=== PATIENT | female | born 1955 | race Hispanic/Latino ===

== ENCOUNTER 2017-07-29 19:55 | Emergency (ER) | payer MEDICARE ==
[2017-07-29 20:31] LABS: EOSINOPHILS % (AUTO) 0.8 % (0.0-8.0); HEMATOCRIT 35.9 % (36-48); LYMPHOCYTES % (AUTO) 16.2 % (21.0-51.0); MEAN CORPUSCULAR HEMOGLOBIN 28.1 pg (27.0-33.0); MEAN CORPUSCULAR HGB CONC 33.9 g/dL (32.0-36.0); MEAN CORPUSCULAR VOLUME 83.1 fL (79-99); MONOCYTES % (AUTO) 16.1 % (3.0-13.0); NEUTROPHILS % (AUTO) 65.9 % (40.0-77.0); PLATELET COUNT (AUTO) 354 K/uL (130-400); RED BLOOD CELL COUNT(AUTO) 4.32 MIL/uL (4.00-5.50); RED CELL DISTRIBUTION WIDTH 14.1 % (11.0-15.5); WHITE BLOOD COUNT (AUTO) 9.4 K/uL (4.8-10.8)
[2017-07-29] MEDS ORDERED: SODIUM CHLORIDE 0.9% 1000ML 1,000 ML IV ONE (20:38)
[2017-07-29 20:41] LABS: CREATININE 1.2 mg/dL (0.5-1.5); POTASSIUM 3.8 mmol/L (3.5-5.1)
[2017-07-29 20:46] LABS: ALBUMIN 3.5 g/dL (3.5-5.0); BILIRUBIN,TOTAL 0.4 mg/dL (0.2-1.0); TOTAL PROTEIN, SERUM 7.9 g/dL (6.0-8.3)
[2017-07-29] MEDS ORDERED: MORPHINE SULFATE 4 MG/1ML SYG ONE (21:23)
[2017-07-29] MEDS ORDERED: ONDANSETRON HCL 4 MG/2 ML VIAL ONE (21:43)
== END 2017-07-29 21:57 | disposition home or self-care (01) ==
LOC: EDH 19:55
DX: J06.9 Acute upper respiratory infection, unspecified (principal); I10 Essential (primary) hypertension; M32.9 Systemic lupus erythematosus, unspecified; M19.90 Unspecified osteoarthritis, unspecified site; Z79.4 Long term (current) use of insulin; Z90.710 Acquired absence of both cervix and uterus; Z90.81 Acquired absence of spleen
CPT/HCPCS: 36415; 71020; 80053; 85025; 87804 ×2; 96374; 96375; 99285; J2270; J2405; J7030

== ENCOUNTER 2018-08-15 07:18 | Emergency (ER) | payer MEDICARE ==
[2018-08-15] MEDS ORDERED: ONDANSETRON HCL 4 MG/2 ML VIAL ONE (07:47)
[2018-08-15] MEDS ORDERED: MORPHINE SULFATE 4 MG/1ML SYG ONE ×2 (07:48→09:26)
[2018-08-15 08:40] LABS: BASOPHILS % (AUTO) 1.1 % (0.0-5.0); EOSINOPHILS % (AUTO) 1.9 % (0.0-8.0); LYMPHOCYTES % (AUTO) 18.3 % (21.0-51.0); MEAN CORPUSCULAR HEMOGLOBIN 28.3 pg (27.0-33.0); MEAN CORPUSCULAR HGB CONC 32.9 g/dL (32.0-36.0); MEAN CORPUSCULAR VOLUME 86.2 fL (79-99); MONOCYTES % (AUTO) 8.4 % (3.0-13.0); NEUTROPHILS % (AUTO) 70.3 % (40.0-77.0); PLATELET COUNT (AUTO) 435 K/uL (130-400); RED BLOOD CELL COUNT(AUTO) 4.29 MIL/uL (4.00-5.50); RED CELL DISTRIBUTION WIDTH 14.5 % (11.0-15.5); WHITE BLOOD COUNT (AUTO) 11.2 K/uL (4.8-10.8)
[2018-08-15 08:45] LABS: POTASSIUM 3.7 mmol/L (3.5-5.1)
[2018-08-15 08:51] LABS: BILIRUBIN,TOTAL 0.4 mg/dL (0.2-1.0); TOTAL PROTEIN, SERUM 8.3 g/dL (6.0-8.3)
[2018-08-15 08:53] LABS: APPEARANCE,URINE Clear (CLEAR); BILIRUBIN,URINE Negative (NEGATIVE); COLOR,URINE Yellow (YELLOW); GLUCOSE, URINE (UA) Negative (NEGATIVE); KETONES,URINE Negative (NEGATIVE); LEUKOCYTE ESTERASE ,URINE Negative (NEGATIVE); NITRATE,URINE Negative (NEGATIVE); OCCULT BLOOD,URINE Negative (NEGATIVE); PH,URINE 6.5 (5.0-8.0); PROTEIN,URINE POS 2+ (NEGATIVE)
[2018-08-15 09:12] LABS: BACTERIA,URINE Rare /HPF (None Seen); RBC,URINE 0-1 /HPF (0-1); SQUAMOUS EPITHELIAL CELL,UR Rare /HPF (0-2); WBC,URINE 0-1 /HPF (0-1)
[2018-08-15] MEDS ORDERED: PREDNISONE 20 MG TABLET ONE (09:40)
== END 2018-08-15 10:25 | disposition home or self-care (01) ==
LOC: EDH 07:18
DX: M25.552 Pain in left hip (principal); M54.5 Low back pain; I10 Essential (primary) hypertension; E11.9 Type 2 diabetes mellitus without complications; M19.90 Unspecified osteoarthritis, unspecified site; Z90.710 Acquired absence of both cervix and uterus; Z98.890 Other specified postprocedural states; Z79.4 Long term (current) use of insulin
CPT/HCPCS: 36415; 80053; 81001; 85025; 96374; 96375; 96376; 99283; J2270 ×2; J2405

== ENCOUNTER 2019-02-03 22:15 | Emergency (ER) | payer MEDICARE ==
[2019-02-03] MEDS ORDERED: LABETALOL 20 MG/4 ML DISP.SYRIN IV ONE (23:09)
[2019-02-03] MEDS ORDERED: DIAZEPAM 5 MG TABLET ONE (23:10)
[2019-02-03 23:37] LABS: BASOPHILS % (AUTO) 0.8 % (0.0-5.0); HEMATOCRIT 33.7 % (36-48); LYMPHOCYTES % (AUTO) 24.1 % (21.0-51.0); MEAN CORPUSCULAR HEMOGLOBIN 27.9 pg (27.0-33.0); MEAN CORPUSCULAR HGB CONC 32.4 g/dL (32.0-36.0); MEAN CORPUSCULAR VOLUME 86.2 fL (79-99); MONOCYTES % (AUTO) 9.1 % (3.0-13.0); PLATELET COUNT (AUTO) 399 K/uL (130-400); RED BLOOD CELL COUNT(AUTO) 3.91 MIL/uL (4.00-5.50); RED CELL DISTRIBUTION WIDTH 14.1 % (11.0-15.5); WHITE BLOOD COUNT (AUTO) 9.6 K/uL (4.8-10.8)
[2019-02-03 23:57] LABS: BILIRUBIN,TOTAL 0.3 mg/dL (0.2-1.0); CREATININE 1.2 mg/dL (0.5-1.5); POTASSIUM 3.8 mmol/L (3.5-5.1)
[2019-02-03 23:58] LABS: ALBUMIN 3.6 g/dL (3.5-5.0); TOTAL PROTEIN, SERUM 7.3 g/dL (6.0-8.3)
[2019-02-04 00:18] LABS: BILIRUBIN,DIRECT 0.1 mg/dL (0.0-0.3)
== END 2019-02-04 01:12 | disposition home or self-care (01) ==
LOC: EDH 22:15
DX: G89.29 Other chronic pain (principal); M54.6 Pain in thoracic spine; I10 Essential (primary) hypertension; E11.9 Type 2 diabetes mellitus without complications; M19.90 Unspecified osteoarthritis, unspecified site; M32.9 Systemic lupus erythematosus, unspecified; Z90.710 Acquired absence of both cervix and uterus; Z90.49 Acquired absence of other specified parts of digestive tract; Z98.890 Other specified postprocedural states
CPT/HCPCS: 36415; 71045; 80048; 80076; 84484; 85025; 93005; 96374

== ENCOUNTER → 2020-08-02 | Outpatient (CLI) | payer OTHER, MEDICARE ==
[~2020-08-02] MED LIST: AEC81 PO; AMLO-257 PO; ATOR10 PO; BETA15CR5 TP; CLON0.1T PO; CYCL10TA7 PO; DOXY100C2 PO; DULO30CA52 PO; LEFL20TA PO; LINA290C PO; LISI10TA7 PO; LORA-699 PO; METF-444 PO; NATE60TA PO; OMEP40CA13 PO; TRAM50TA4 PO; ZOLP5TAB8 PO
== END ==
LOC: OIH 07:59
PROVIDERS: ATTEND Internal Medicine
DX: M19.071 Primary osteoarthritis, right ankle and foot (principal); M19.072 Primary osteoarthritis, left ankle and foot; M19.042 Primary osteoarthritis, left hand; M19.041 Primary osteoarthritis, right hand
CPT/HCPCS: 73630

== ENCOUNTER 2020-12-31 13:32 | Emergency (ER) | payer OTHER, MEDICARE ==
[~2020-12-31] VITALS: Ht 149.9 cm; Wt 49.4 kg
[~2020-12-31 13:32] MED LIST changes: +LISI10TA24 PO; -LISI10TA7 PO
[2020-12-31 14:24] VITALS: BP 145/61
[2020-12-31] MEDS ORDERED: ONDANSETRON HCL 4 MG/2 ML VIAL IVP ONE (15:00)
[2020-12-31] MEDS ORDERED: MORPHINE 4 MG SYG (4MG/1ML) IVP ONE (15:00)
[2020-12-31] MEDS ORDERED: ASPIRIN 325 MG TABLET PO ONE (15:00)
[2020-12-31] MEDS ORDERED: LACTATED RINGERS 1000ML 1,000 ML IV ONE (15:45)
[2020-12-31 15:48] LABS: BASOPHILS % (AUTO) 1.1 % (0.0-5.0); EOSINOPHILS % (AUTO) 1.4 % (0.0-8.0); HEMATOCRIT 32.9 % (36-48); LYMPHOCYTES % (AUTO) 11.5 % (21.0-51.0); MEAN CORPUSCULAR HEMOGLOBIN 28.5 pg (27.0-33.0); MEAN CORPUSCULAR HGB CONC 31.3 g/dL (32.0-36.0); MEAN CORPUSCULAR VOLUME 90.9 fL (79-99); MONOCYTES % (AUTO) 8.1 % (3.0-13.0); NEUTROPHILS % (AUTO) 76.2 % (40.0-77.0); RED BLOOD CELL COUNT(AUTO) 3.62 MIL/uL (4.00-5.50); WHITE BLOOD COUNT (AUTO) 14.7 K/uL (4.8-10.8)
[2020-12-31 16:10] LABS: AMPHET/METH SCREEN,URINE NEGATIVE (NEGATIVE); BARBITURATE SCREEN, URINE NEGATIVE (NEGATIVE); BENZODIAZEPINES SCREEN,URINE NEGATIVE (NEGATIVE); CANNABINOID SCREEN,URINE NEGATIVE (NEGATIVE); COCAINE SCREEN,URINE NEGATIVE (NEGATIVE); OPIATE SCREEN,URINE NEGATIVE (NEGATIVE); PHENCYCLIDINE SCREEN,URINE NEGATIVE (NEGATIVE)
[2020-12-31 16:14] VITALS: BP 152/63
[2020-12-31 16:20] LABS: B-TYPE NATRIURETIC PEPTIDE 24 pg/mL (0-100)
[2020-12-31 16:21] LABS: PLATELET COUNT (AUTO) 743 K/uL (130-400)
[2020-12-31 16:40] LABS: BILIRUBIN,TOTAL 0.3 mg/dL (0.2-1.0); CREATININE 1.2 mg/dL (0.5-1.5); MAGNESIUM 1.6 mg/dL (1.80-2.40); POTASSIUM 5.8 mmol/L (3.5-5.1)
[2020-12-31 16:41] LABS: TOTAL PROTEIN, SERUM 7.8 g/dL (6.0-8.3)
[2020-12-31 17:59] VITALS: BP 135/78
== END 2020-12-31 18:07 | disposition home or self-care (01) ==
LOC: EDH 13:32
DX: M54.6 Pain in thoracic spine (principal); M25.511 Pain in right shoulder; R11.0 Nausea; I10 Essential (primary) hypertension; E11.9 Type 2 diabetes mellitus without complications; E78.5 Hyperlipidemia, unspecified; K21.9 Gastro-esophageal reflux disease without esophagitis; Z90.710 Acquired absence of both cervix and uterus; Z98.890 Other specified postprocedural states; Z79.82 Long term (current) use of aspirin; Z79.899 Other long term (current) drug therapy
CPT/HCPCS: 36415; 71045; 80053; 80305; 82550; 83690; 83735; 83874; 83880; 84484; 85025; 85378; 93005; 96374; 96375; 99285; J2270; J2405; J7120

== ENCOUNTER → 2021-01-19 | Outpatient (CLI) | payer OTHER, MEDICARE ==
[~2021-01-19] MED LIST changes: -OMEP40CA13 PO; +OMEP40CA21 PO
== END | disposition home or self-care (01) ==
LOC: OIH 13:06
PROVIDERS: ATTEND Internal Medicine
DX: M47.816 Spondylosis without myelopathy or radiculopathy, lumbar region (principal); M25.78 Osteophyte, vertebrae; M46.1 Sacroiliitis, not elsewhere classified
CPT/HCPCS: 72100; 72202

== ENCOUNTER 2024-07-05 07:27 | Emergency (ER) | payer OTHER, MEDICARE ==
[~2024-07-05] VITALS: Ht 149.9 cm; Wt 54.4 kg
[~2024-07-05 07:27] MED LIST changes: +BETA15CR12 TP; -BETA15CR5 TP; +CYCL-309 PO; -CYCL10TA7 PO; -DOXY100C2 PO; +DOXY100C5 PO
--- NOTE | 2024-07-05 07:56 | ERN ---
ED Note History of Present Illness Stated Complaint: LEFT HIP PAIN Chief Complaint: Hip Pain/Injury Time Seen by MD: 07:29 Dictation: This 69-year-old female with a history of significant arthritis and lupus who has frequent joint pains presents in the emergency department complaining of atraumatic left buttock and hip area pain that was present when she got up yesterday. She took a half a hydrocodone with relief but is here because she finds that cyclobenzaprine is often helpful when this happens. The patient reports some nausea and has had low-grade fever which is intermittent but denies chills, poor appetite, rash, focal weakness, numbness, or tingling, new urinary symptoms or GI complaints. She states she is eating drinking and drinking well. She has some chronic urinary incontinence which is unchanged. She has known renal insufficiency and is followed by Dr. Lewis for regular care and Dr. Marsha Fitzgerald for her kidneys. She is experiencing any other acute joint pains right now. The patient has a history of hyperlipidemia, hypertension, anemia, diabetes and hysterectomy in the past. She is here with her spouse Allergies: Coded Allergies: No Known Drug Allergies (Verified Allergy, Unknown, 08/08/19) Home Meds Active Scripts Doxycycline Hyclate (Doxycycline Hyclate) 100 Mg Capsule, 100 MG PO BID for 4 Days, #8 CAP 0 Refills Prov:OREN CASTANEDA MD 08/12/19 Reported Medications Betamethasone/Propylene Glyc (Betamethasone Dp Aug 0.05% Crm) 15 Gm Cream..g., 15 GM TP AD 08/10/19 Metformin HCl (Metformin HCl) 500 Mg Tablet, 500 MG PO AD, TAB 08/10/19 Aspirin (ASPIRIN 81 MG ECTAB) 81 Mg Ectab, 81 MG PO DAILY, TAB.EC 08/10/19 Duloxetine HCl (Duloxetine HCl) 30 Mg Capsule.dr, 30 MG PO AD, CAP 08/10/19 Clonidine HCl (Clonidine HCl) 0.1 Mg Tablet, 0.1 MG PO AD, TAB 08/10/19 Cyclobenzaprine HCl (Cyclobenzaprine HCl) 10 Mg Tablet, 10 MG PO AD, TAB 08/10/19 Loratadine (Loratadine) 10 Mg Tab.rapdis, 10 MG PO AD, TAB 08/10/19 Tramadol Hcl (Tramadol HCl) 50 Mg Tablet, 50 MG PO AD, TAB 08/10/19 Zolpidem Tartrate (Zolpidem Tartrate) 5 Mg Tablet, 5 MG PO HS, TAB 08/10/19 Nateglinide (Starlix) 60 Mg Tablet, 60 MG PO TID, TAB 08/10/19 Leflunomide (Arava) 20 Mg Tablet, 20 MG PO DAILY, TAB 08/10/19 Linaclotide (Linzess) 290 Mcg Capsule, 290 MCG PO DAILY, CAP 08/10/19 Amlodipine Besylate (Amlodipine Besylate) 5 Mg Tablet, 5 MG PO BID, TAB 08/10/19 Omeprazole (Omeprazole) 40 Mg Capsule.dr, 40 MG PO DAILY, CAP 08/10/19 Atorvastatin Calcium (LIPITOR) 10 Mg Tab, 10 MG PO HS, TAB 08/10/19 Lisinopril (Lisinopril) 10 Mg Tablet, 10 MG PO DAILY, TAB 08/10/19 Past Medical History Past Medical History: Anemia, Diabetes-Type II, High Cholesterol, Hypertension Additional Past Medical Hx: ARTHRITIS ,LUPUS Surgical History: Hysterectomy Family History: Negative Social History: Negative, Lives with family RN Note Reviewed/Agreed w/PFSH: Yes Review of System Dictation All pertinent systems reviewed, negative except as documented in the HPI The ROS is obtained from patient GENERAL/CONSTITUTIONAL: Negative except as documented in HPI. ENT: Negative except as documented in HPI. CARDIOVASCULAR: Negative except as documented in HPI. RESPIRATORY: Negative except as documented in HPI. GASTROINTESTINAL: Negative except as documented in HPI. GENITOURINARY: Negative except as documented in HPI. MUSCULOSKELETAL: Negative except as documented in HPI. SKIN: Negative except as documented in HPI. NEUROLOGIC: Negative except as documented in HPI. Initial Vital Sign VS Vital Signs Date Time Temp Pulse Resp B/P (MAP) Pulse Ox O2 Delivery O2 Flow Rate FiO2 07/05/24 07:29 98.8 68 18 203/71 98 Room Air 0 07/05/24 10:13 21 Physical Exam Dictation VITAL SIGNS: note is made of triage vital signs CONSTITUTIONAL: This is a comfortable nontoxic but chronically ill-appearing patient who is awake, alert, and appropriately interactive. HEAD: Normocephalic, Atraumatic. EYES: Pupils are equal. There was mild periorbital edema ENT: No nasal discharge noted. Posterior pharynx is without exudate, redness, swelling, masses, or evidence of obstruction. Uvula midline. Mucous membranes moist. NECK: Trachea midline, no masses palpated, and no cervical lymphadenopathy. No swelling. Supple, full range of motion without nuchal rigidity. No vertebral point tenderness. No meningismus. CHEST/AXILLA: Normal chest wall appearance and motion. No tenderness. No crepitus. CV: Normal rate, regular rhythm. No murmur. No edema. RESPIRATORY:Respiratory rate is normal. Bilateral equal breath sounds with good airflow. Normal breath sounds are noted. No rales, rhonchi or wheezes noted. No increased work of breathing, no retractions. ABDOMEN: Inspection normal. No distention is appreciated. Bowel sounds are normal. No mass or organomegaly is appreciated. There is no tenderness. No rebound. No rigidity. No voluntary or involuntary guarding. BACK: Inspection is normal. No midline tenderness is appreciated. The patient appears comfortable when moving. There was no rash associated with the area of pain in the buttock and the midline is nontender : No CVA tenderness or bladder tenderness. SKIN: Warm, dry, with normal turgor. Capillary refill less than 3 seconds. Normal color.No rash. No cellulitis or abscess. No evidence of acute injury. MS/Extremity: There is no calf tenderness. Baseline range of motion is noted in all 4 extremities. There are no deformities. NEURO: Awake and alert, lucid. Facies symmetric and speech is clear. Motor strength 5/5 in all extremities. Sensory grossly intact. PSYCH: Patient is appropriately attentive and cooperative without evidence of hallucination. Results (Laboratory/Radiology) Laboratory/Radiology Laboratory Tests Test 07/05/24 08:50 07/05/24 09:43 Urine Color LIGHT-YELLOW (YELLOW) Urine Appearance CLEAR (CLEAR) Urine pH 6.0 (5.0-8.0) Urine Specific [place] 1.013 (1.001-1.031) Urine Protein 30 mg/dL (NEGATIVE) H Urine Glucose (UA) >=1000 mg/dL (NEGATIVE) H Urine Ketones NEGATIVE mg/dL (NEGATIVE) Urine Occult Blood +- (TRACE) (NEGATIVE) H Urine Nitrate NEGATIVE (NEGATIVE) Urine Bilirubin NEGATIVE mg/dL (NEGATIVE) Urine Urobilinogen 0.2 mg/dL (0.2-1.0) Urine Leukocyte Esterase NEGATIVE Liliana/uL Urine RBC 0-1 /HPF (0-1) Urine WBC 0-1 /HPF (0-1) Urine Squamous Epithelial Cells RARE /HPF (0-2) Urine Bacteria None /HPF (None Seen) White Blood Count 8.7 K/uL (4.8-10.8) Red Blood Count 3.98 MIL/uL (4.00-5.50) L Hemoglobin 11.1 g/dL (12.0-16.0) L Hematocrit 34.4 % (36-48) L Mean Corpuscular Volume 86.4 fL (79-99) Mean Corpuscular Hemoglobin 27.9 pg (27.0-33.0) Mean Corpuscular Hemoglobin Concent 32.3 g/dL (32.0-36.0) Red Cell Distribution Width 14.8 % (11.0-15.5) Platelet Count 481 K/uL (130-400) H Mean Platelet Volume 9.9 fL (7.5-10.5) Immature Granulocyte % (Auto) 0.6 % (0-1) Neutrophils (%) (Auto) 79.8 % (40.0-77.0) H Lymphocytes (%) (Auto) 11.3 % (21.0-51.0) L Monocytes (%) (Auto) 6.1 % (3.0-13.0) Eosinophils (%) (Auto) 1.6 % (0.0-8.0) Basophils (%) (Auto) 0.6 % (0.0-5.0) Neutrophils # (Auto) 7.0 K/uL (1.8-7.7) Lymphocytes # (Auto) 1.0 K/uL (1.0-4.8) Monocytes # (Auto) 0.5 K/uL (0.1-1.0) Eosinophils # (Auto) 0.14 K/uL (0.00-0.70) Basophils # (Auto) 0.05 K/uL (0.00-0.20) Absolute Immature Granulocyte (auto 0.05 K/uL (0-1) Nucleated Red Blood Cells 0.0 % (0.0-0.19) Sodium Level 139 mmol/L (136-145) Potassium Level 5.1 mmol/L (3.5-5.1) Chloride Level 103 mmol/L (101-111) Carbon Dioxide Level 29 mmol/L (21-32) Blood Urea Nitrogen 34 mg/dL (7-18) H Creatinine 1.9 mg/dL (0.5-1.0) H Glomerular Filtration Rate Calc 28 mL/min (>90) Random Glucose 127 mg/dL (70-105) H Total Calcium 9.4 mg/dL (8.5-10.1) C-Reactive Protein, Quantitative 2.20 mg/L (0.5-3.0) Labs Reviewed?: Yes X-RAY Comment: The hip and spine films showed degenerative changes but no evidence of acute abnormalities on my interpretation. Radiology reading is pending at the time of disposition ED Course ED Course Orders Procedure Category Date Status Time Cbc With Differential LAB 07/05/24 Complete 07:54 Basic Metabolic Panel LAB 07/05/24 Complete 07:54 Hip Unilat 2-3vw Left RAD 07/05/24 Taken 07:54 Lumbar Spine 2-3vws RAD 07/05/24 Taken 08:14 Urinalysis Profile LAB 07/05/24 Complete 08:57 Morphine 4mg Syg PHA 07/05/24 Complete (Morphine 4mg Syg) 10:00 Ondansetron 4mg Inj PHA 07/05/24 Complete (Zofran 4mg Inj) 10:00 Ondansetron 4mg Inj PHA 07/05/24 Complete (Zofran 4mg Inj) 09:47 Morphine 4mg Syg PHA 07/05/24 Complete (Morphine 4mg Syg) 09:47 Crp Quantitative LAB 07/05/24 Complete 09:43 Methylprednisolone PHA 07/05/24 In Process Succ 125mg (Solu-Medr 11:00 Current Medications Medications (Trade) Dose Ordered Sig/Ronen Route PRN Reason Start Time Stop Time Status Last Admin Dose Admin Methylprednisolone Sodium Succinate (Solu-medROL 125MG) 80 mg ONCE ONCE IVP 07/05/24 11:00 07/05/24 11:01 07/05/24 10:34 Morphine Sulfate (morPHINE 4MG SYG) 4 mg ONCE ONCE IVP 07/05/24 10:00 07/05/24 10:01 DC 07/05/24 09:48 Morphine Sulfate (morPHINE 4MG SYG) 4 mg STK-MED ONCE .ROUTE 07/05/24 09:47 07/05/24 09:48 DC Ondansetron HCl (zoFRAN 4MG INJ) 4 mg ONCE ONCE IVP 07/05/24 10:00 07/05/24 10:01 DC 07/05/24 10:01 Ondansetron HCl (zoFRAN 4MG INJ) 4 mg STK-MED ONCE .ROUTE 07/05/24 09:47 07/05/24 09:47 DC Vital Signs Date Time Temp Pulse Resp B/P (MAP) Pulse Ox O2 Delivery O2 Flow Rate FiO2 07/05/24 10:13 76 16 160/58 96 Room Air* 0 21 07/05/24 07:29 98.8 68 18 203/71 98 Room Air 0 Medical Decision Making MDM INITIAL IMPRESSION Initial history and physical concerning for acute exacerbation of chronic joint pain Contributing medical problems: Lupus, hypertension hyperlipidemia and diabetes, chronic renal insufficiency I have reviewed the triage nursing notes and vital signs. The patient is afebrile with acceptable oxygen saturation, heart rate and blood pressure. Initial plan: Laboratory screening, symptomatic medication DATA REVIEW I have reviewed additional NN, repeat VS, and monitoring where indicated. Blood pressure came down to 160/80. Patient remains afebrile. [facility] diagnostic results: White count is not elevated, there was mild neutrophil predominance and mild anemia. BUN is 34 and creatinine are 1.9. The glucose is 127. C-reactive protein is unremarkable. There was no UTI Other independent historian: none Review of external data: Previous kidney function dates 09/18/2020 with a creatinine of 1.2 however the patient has seen Dr. Marsha Fitzgerald recently and reports that her kidney numbers have been gradually worsening ED COURSE Interventions: The patient received some morphine and steroids. Reassessment: She reports improvement and would like to go home DISPOSITION Final diagnostic impression: Acute exacerbation of chronic joint pain No evidence of a contributing infection, shingles or occult trauma. I discussed my findings, clinical impression and treatment recommendations with the patient. I have reviewed the social factors contributing to the patient's presentation and disposition planning. My final plan for disposition was made based upon clinical findings, response to treatment and discussion with the patient regarding management options. I did tell the patient that I would review the final reading of the x-ray later today and get back with her if there is something unexpected. Hospitalization is not indicated due to low risk of short term progression, complication, morbidity or mortality related to the current diagnosis At the time of discharge, the vital signs are within acceptable limits. The discharge treatment plan includes low-dose cyclobenzaprine. I do not plan to discharge her with a steroid course. She can see her PCP if she has persistent pain this coming week I did discuss the warnings related to the beers list classification for cyclobenzaprine inpatient in her age group. Incidental findings discussed: We did discuss kidney function Questions were invited and answered in layman's terms. I have emphasized my follow-up recommendations and reviewed ED return precautions. I have answered any questions in layman's terms. The patient understands that they will have to arrange for out-patient follow-up for recheck of today's condition. The patient is stable and appropriate for discharge from the ED. This dictation was prepared using [employer] voice recognition software. Occasional voice recognition errors may occur. When identified, these errors have been corrected. While every attempt is made to correct errors during dictation, errors may still exist. DX & DISP Disposition: Discharge Decision to Admit Date: Jul 05, 2024 Decision to Admit Time: 11:00 Departure Impression: Primary Impression: Left back and hip pain Additional Impressions: Chronic renal insufficiency, Systemic lupus erythematosus, Chronic urinary incontinence Condition: Stable Scripts Cyclobenzaprine HCl (Cyclobenzaprine HCl) 10 Mg Tablet 0.5 TAB PO BID PRN for PAIN for 10 Days, #10 TAB 0 Refills Prov: DEBBY REDDY MD 07/05/24 Additional Instructions: Local heat or cream such as icy hot or [place] may be helpful over the affected area. Use Tylenol for baseline pain control and add in the hydrocodone or cyclobenzaprine if needed for significant pain. Both of those medications have the effect of increased sedation, constipation, dry mouth, dizziness and falls. If you are not feeling a lot better follow up with Dr. Lewis later this week. Continue all your usual home medications. I will call you if the x-ray readings come back with any unexpected findings later today Referrals: NONE (PCP) Time of Disposition: 11:03 DEBBY REDDY MD Jul 05, 2024 07:56
[2024-07-05 09:25] LABS: APPEARANCE,URINE CLEAR (CLEAR); BILIRUBIN,URINE NEGATIVE (NEGATIVE); GLUCOSE, URINE (UA) >=1000 mg/dL (NEGATIVE); KETONES,URINE NEGATIVE (NEGATIVE); LEUKOCYTE ESTERASE ,URINE NEGATIVE Leu/uL (NEGATIVE); NITRATE,URINE NEGATIVE (NEGATIVE); UROBILINOGEN,URINE 0.2 mg/dL (0.2-1.0)
[2024-07-05 09:26] LABS: ADD UA MICROSCOPIC YES; PROTEIN,URINE 30 mg/dL (NEGATIVE)
[2024-07-05 09:27] LABS: COLOR,URINE LIGHT-YELLOW (YELLOW)
[2024-07-05 09:28] LABS: RBC,URINE 0-1 /HPF (0-1); SQUAMOUS EPITHELIAL CELL,UR RARE /HPF (0-2); WBC,URINE 0-1 /HPF (0-1)
[2024-07-05] MEDS: morPHINE 4 MG SYG IVP ONE (09:48)
[2024-07-05 09:49] LABS: BASOPHILS # (AUTO) 0.05 K/uL (0.00-0.20); BASOPHILS % (AUTO) 0.6 % (0.0-5.0); EOSINOPHILS # (AUTO) 0.14 K/uL (0.00-0.70); EOSINOPHILS % (AUTO) 1.6 % (0.0-8.0); HEMATOCRIT 34.4 % (36-48); IMMATURE GRANULOCYTE ABSOLUTE 0.05 K/uL (0-1); LYMPHOCYTES % (AUTO) 11.3 % (21.0-51.0); MEAN CORPUSCULAR HEMOGLOBIN 27.9 pg (27.0-33.0); MEAN CORPUSCULAR HGB CONC 32.3 g/dL (32.0-36.0); MEAN CORPUSCULAR VOLUME 86.4 fL (79-99); MONOCYTES # (AUTO) 0.5 K/uL (0.1-1.0); MONOCYTES % (AUTO) 6.1 % (3.0-13.0); NEUTROPHILS % (AUTO) 79.8 % (40.0-77.0); PLATELET COUNT (AUTO) 481 K/uL (130-400); RED BLOOD CELL COUNT(AUTO) 3.98 MIL/uL (4.00-5.50); RED CELL DISTRIBUTION WIDTH 14.8 % (11.0-15.5); WHITE BLOOD COUNT (AUTO) 8.7 K/uL (4.8-10.8)
[2024-07-05] MEDS: morPHINE 4 MG SYG ONE (10:00)
[2024-07-05] MEDS: ondanSETRON 4MG INJ ONE (10:00)
[2024-07-05] MEDS: ondanSETRON 4MG INJ IVP ONE (10:01)
[2024-07-05 10:06] LABS: CREATININE 1.9 mg/dL (0.5-1.0); POTASSIUM 5.1 mmol/L (3.5-5.1)
[2024-07-05] MEDS: Solu-medROL 125MG VIAL IVP ONE (10:34)
[2024-07-05] MEDS ORDERED: CYCL-309 PO (11:02)
[2024-07-05 11:23] VITALS: BP 149/56; PULSE 70; RESP 16; TEMP 97.8; O2SAT 99
--- NOTE | 2024-07-05 18:10 | HMCIMG ---
EXAM: LUMBAR SPINE 2-3VWS CLINICAL HISTORY: lt buttock pain COMPARISON:01/19/2021. TECHNIQUE: AP lateral and L5-S1 spot images of the lumbar spine were obtained. FINDINGS: There is normal alignment of vertebrae. There is no vertebral body height loss or fractures. Again demonstrated is diffuse mild bony osteophytic production. Again also demonstrated are clips from prior surgery. IMPRESSION: Degenerative change with no acute findings
--- NOTE | 2024-07-05 18:10 | HMCIMG ---
HIP UNILAT 2-3VW LEFT CLINICAL HISTORY: atraumatic pain COMPARISON: None TECHNIQUE: AP pelvis and lateral view left hip images were obtained. FINDINGS: There is no identified acute fracture, subluxation or dislocation. Soft tissues demonstrate advanced atherosclerotic vascular disease and clips from prior surgery. IMPRESSION: No acute findings.
== END 2024-07-05 11:29 | disposition home or self-care (01) ==
LOC: EDH 07:27
DX: M54.89 Other dorsalgia (principal); M25.552 Pain in left hip; E11.22 Type 2 diabetes mellitus with diabetic chronic kidney disease; I12.9 Hypertensive chronic kidney disease with stage 1 through stage 4 chronic kidney disease, or unspecified chronic kidney disease; N18.9 Chronic kidney disease, unspecified; R32 Unspecified urinary incontinence; M32.14 Glomerular disease in systemic lupus erythematosus; E78.00 Pure hypercholesterolemia, unspecified; Z79.69 Long term (current) use of other immunomodulators and immunosuppressants; Z79.82 Long term (current) use of aspirin; Z79.899 Other long term (current) drug therapy; Z90.710 Acquired absence of both cervix and uterus
CPT/HCPCS: 99284; 96374; 96375; 80048; 85025; 86140; 81001; 36415; 73502; 72100; J2919; J2405; J2270